=== PATIENT | male | born 1970 | race Caucasian/White ===

== ENCOUNTER 2019-11-21 08:09 | Outpatient (CLI) | payer OTHER, SELFPAY ==
--- NOTE | 2019-11-21 08:22 | CT_ITS ---
WS: [id number] CT HEAD TECHNIQUE: Noncontrast CT of the head obtained from the skullbase to the vertex. CLINICAL INFORMATION: head trauma and pain, slight facial asymetry COMPARISON: None. DLP: 992.[address] scans at [facility] use at least one of these dose optimization techniques: automat ed exposure control; mA and/or kV adjustment per patient size (includes targeted exams where dose is matched to clinical indication); or iterative reconstruction. FINDINGS: No evidence of intracranial hemorrhage or mass effect. Ventricular system and basal cisterns are braden nt. Mild parenchymal volume loss. No extra-axial fluid collections. No evidence of mass or mass effec t. Normal mcfadden-white differentiation. Paranasal sinuses and mastoid air cells are well aerated. .Normal visualized soft tissues. CT/CT head wo con* [id number] IMPRESSION: 1. No evidence of intracranial hemorrhage or mass effect. 2. Mild parenchymal volume loss. Normal mcfadden-white differentiation. 3. No acute intracranial findings.
== END 2019-11-21 08:10 | disposition home or self-care (01) ==
LOC: RADWPI 08:11
PROVIDERS: PCP Chiropractor Orthopedic; Visit Provider Emergency Medicine
DX: S09.90XA Unspecified injury of head, initial encounter (principal); H53.8 Other visual disturbances; R51.9 Headache, unspecified
CPT/HCPCS: 70450